=== PATIENT | female | born 1955 | race Hispanic/Latino ===

== ENCOUNTER 2022-07-04 15:26 | Outpatient (CLI) | payer BC | END 2022-07-04 15:27 | disposition home or self-care (01) | LOC: CSHLAB 15:26 | PROVIDERS: ATTEND Obstetrics & Gynecology | DX: Z01.818 Encounter for other preprocedural examination (principal); N81.4 Uterovaginal prolapse, unspecified | CPT/HCPCS: 85027; 86850; 86900; 86901; 93005; 93010 ==

== ENCOUNTER 2022-07-05 07:45 | Day surgery (SDC) | payer BC ==
[2022-07-04 13:10] VITALS: BMI 29.2
[2022-07-04 16:42] LABS: Hemoglobin 11.4 g/dL (12.0-15.5); Mean Corpuscular HGB CONC 32.6 g/dL (32.0-36.0); Mean Corpuscular Hemoglobin 26.8 pg (27.0-33.0); Mean Corpuscular Volume 82.4 fl (81.6-98.3); Mean Platelet Volume 10.4 fl (7.4-10.4); Platelet Count 350 10x3/uL (150-450); RBC Distribution Width 13.7 % (11.5-14.5); Red Blood Cell (RBC) Count 4.25 10x6/uL (3.90-5.03)
[2022-07-05] MEDS ORDERED: Gabapentin 300 MG CAP ONE (08:45)
[2022-07-05] MEDS ORDERED: Famotidine/PF 20 mg/2ml Vial ONE (08:46)
[2022-07-05] MEDS ORDERED: CeleCOXIB 100 MG CAP ONE (08:47)
[2022-07-05] MEDS ORDERED: Acetaminophen 500 MG TAB ONE (09:10)
[2022-07-05] MEDS ORDERED: EPINEPHrine 1 MG/ML AMP ONE (09:29)
[2022-07-05] MEDS ORDERED: Bupivacaine PF 0.5% 30 ML VIAL ONE (09:29)
[2022-07-05] MEDS ORDERED: Lidocaine 1% w/Epinephrine 1:200K 30 ML VIAL ONE (09:33)
[2022-07-05] MEDS ORDERED: Lidocaine 1% PF 5 ML VIAL ONE (09:36)
[2022-07-05] MEDS ORDERED: Midazolam HCl 2 mg/2 ml Vial ONE (09:36)
[2022-07-05] MEDS ORDERED: Rocuronium Bromide 10 MG/ML (10ML VIAL) ONE (09:36)
[2022-07-05] MEDS ORDERED: PROPOFOL 20 ML ONE (09:36)
[2022-07-05] MEDS ORDERED: Ondansetron PF 4 MG/2 ML Vial ONE (09:36)
[2022-07-05] MEDS ORDERED: Glycopyrrolate 0.2 MG/ML 5 ML SYRINGE ONE (09:37)
[2022-07-05] MEDS ORDERED: Ketorolac Tromethamine 30 MG/ML VIAL ONE (09:37)
[2022-07-05] MEDS ORDERED: Fentanyl 100 MCG/2 ML VIAL ONE (09:37)
[2022-07-05 09:42] LABS: SARS-CoV-2 NAA Rapid Test Not Detected (NotDetected)
[2022-07-05] MEDS ORDERED: Levofloxacin 500 mg/D5W 100 ml Premix Bag ONE (09:59)
[2022-07-05] MEDS ORDERED: Clindamycin/D5W 900 mg/50 ml Premix Bag ONE (09:59)
[2022-07-05] MEDS ORDERED: Fentanyl 100 MCG/2 ML VIAL SLOW IVP PRN (12:26)
[2022-07-05] MEDS ORDERED: Dextrose 5% in Water 1,000 ML IV PRN (12:26)
[2022-07-05] MEDS ORDERED: HYDROcodone/Acetaminophen 10/325 mg Tablet PO PRN ×2 (12:26)
[2022-07-05] MEDS ORDERED: Bisacodyl 10 MG SUPP PR PRN (12:26)
[2022-07-05] MEDS ORDERED: Simethicone Chewable 80 MG TAB PO PRN (12:26)
[2022-07-05] MEDS ORDERED: Promethazine HCl 25 MG/ML VIAL IM PRN (12:26)
[2022-07-05] MEDS ORDERED: traMADol HCl 50 MG TAB PO PRN (12:26)
[2022-07-05] MEDS ORDERED: Dextrose 50% Abboject 50 ML SYRINGE SLOW IVP PRN (12:26)
[2022-07-05] MEDS ORDERED: Zolpidem Tartrate 5 MG TAB PO PRN (12:26)
[2022-07-05] MEDS ORDERED: Ondansetron PF 4 MG/2 ML Vial IVP PRN (12:26)
[2022-07-05] MEDS ORDERED: diphenhydrAMINE 25 MG CAP PO PRN (12:26)
[2022-07-05] MEDS ORDERED: Sodium Chloride 0.9% 1,000 ML IV SCH (12:30)
[2022-07-05] MEDS: Ketorolac Tromethamine 30 MG/ML VIAL IVP SCH (18:18)
[2022-07-05] MEDS: metFORMIN 500 MG TAB PO SCH (20:53)
[2022-07-05] MEDS ORDERED: Atorvastatin Calcium 10 MG TAB PO SCH (21:00)
[2022-07-06] MEDS: Ketorolac Tromethamine 30 MG/ML VIAL IVP SCH ×2 (00:22→06:13)
[2022-07-06 04:14] LABS: Hemoglobin 10.3 g/dL (12.0-15.5); Mean Corpuscular HGB CONC 32.5 g/dL (32.0-36.0); Mean Corpuscular Hemoglobin 26.3 pg (27.0-33.0); Mean Corpuscular Volume 81.1 fl (81.6-98.3); Mean Platelet Volume 10.2 fl (7.4-10.4); Platelet Count 303 10x3/uL (150-450); RBC Distribution Width 13.4 % (11.5-14.5); Red Blood Cell (RBC) Count 3.91 10x6/uL (3.90-5.03)
[2022-07-06] MEDS: metFORMIN 500 MG TAB PO SCH (08:26)
[2022-07-06] MEDS ORDERED: Losartan Potassium 50 MG TAB PO SCH (09:00)
[2022-07-06] MEDS ORDERED: Hydrochlorothiazide 25 MG TAB PO SCH (09:00)
[2022-07-06] MEDS ORDERED: Empagliflozin 25 MG TAB PO SCH (09:00)
[2022-07-06] MEDS ORDERED: Multivitamin W/ Minerals 1 TAB PO SCH (09:00)
[2022-07-06] MEDS ORDERED: Fish Oil 1,000 MG CAP PO SCH (09:00)
[2022-07-06 11:25] VITALS: BP 111/56; TEMP 97.9
[2022-07-06] MEDS ORDERED: Ibuprofen 800 MG TAB PO SCH (12:00)
== END 2022-07-06 11:51 | disposition home or self-care (01) ==
LOC: CSHSDC 07:45 → CSHPED 14:01 → CSHSDC 07-06 11:51
PROVIDERS: ATTEND Obstetrics & Gynecology
PROC: 0UT24ZZ Resection of Bilateral Ovaries, Percutaneous Endoscopic Approach (ICD-10-PCS; principal; 2022-07-05)
PROC: 0USG4ZZ Reposition Vagina, Percutaneous Endoscopic Approach (ICD-10-PCS; principal; 2022-07-05)
PROC: 0UT94ZZ Resection of Uterus, Percutaneous Endoscopic Approach (ICD-10-PCS; principal; 2022-07-05)
PROC: 0UT74ZZ Resection of Bilateral Fallopian Tubes, Percutaneous Endoscopic Approach (ICD-10-PCS; principal; 2022-07-05)
DX: N81.4 Uterovaginal prolapse, unspecified (principal); D25.9 Leiomyoma of uterus, unspecified; N88.8 Other specified noninflammatory disorders of cervix uteri; N72 Inflammatory disease of cervix uteri; E11.9 Type 2 diabetes mellitus without complications; E78.00 Pure hypercholesterolemia, unspecified; I10 Essential (primary) hypertension; Z20.822 Contact with and (suspected) exposure to COVID-19; R06.02 Shortness of breath; R00.0 Tachycardia, unspecified; I35.1 Nonrheumatic aortic (valve) insufficiency; Z98.51 Tubal ligation status; Z79.84 Long term (current) use of oral hypoglycemic drugs; Z79.899 Other long term (current) drug therapy
CPT/HCPCS: 36415; 36416; 85027; 86850; 86900; 86901; 88307; C1776; J0171; J1885; J1956; J2250; J2405; J2704; J3010; J3490; J7050; S0020; S0028; U0002